=== PATIENT | male | born 1965 | race Caucasian/White ===

== ENCOUNTER 2018-11-18 06:05 | Inpatient (IN) | payer OTHER | END 2018-11-20 10:00 | disposition home or self-care (01) | LOC: PAS IN 06:05 → ORTHO 4S 11:33 | PROC: 0SRD0J9 Replacement of Left Knee Joint with Synthetic Substitute, Cemented, Open Approach (ICD-10-PCS; principal; 2018-11-18 08:38) | DX: M16.11 Unilateral primary osteoarthritis, right hip (principal) ==

== ENCOUNTER 2020-01-04 06:07 | Inpatient (IN) | payer OTHER ==
[2019-12-28 16:00] LABS: BASOPHILS # (AUTO) 0.1 X10'3 (0-0.2); BASOPHILS % (AUTO) 0.8 % (0-1); EOSINOPHILS # (AUTO) 0.1 X10'3 (0-0.9); EOSINOPHILS % (AUTO) 1.5 % (0-6); HEMATOCRIT 42.9 % (42.0-52.0); HEMOGLOBIN 14.3 g/dl (14.0-17.9); LYMPHOCYTES # (AUTO) 2.4 X10'3 (1.1-4.8); LYMPHOCYTES % (AUTO) 35.9 % (21-51); MEAN CORPUSCULAR HEMOGLOBIN 30.4 PG (27.0-31.0); MEAN CORPUSCULAR HGB CONC 33.2 g/dL (33.0-36.5); MEAN CORPUSCULAR VOLUME 91.3 FL (78-98); MEAN PLATELET VOLUME 8.4 FL (7.4-10.4); MONOCYTES # (AUTO) 0.6 X10'3 (0-0.9); MONOCYTES % (AUTO) 8.8 % (2-12); NEUTROPHILS # (AUTO) 3.5 X10'3 (1.8-7.7); PLATELET COUNT 228 X10'3 (140-440); RED BLOOD COUNT 4.69 X10'6 (4.70-6.10); RED CELL DISTRIBUTION WIDTH 13.8 % (11.5-14.5); WHITE BLOOD COUNT 6.6 X10'3 (4.5-11.0)
[2019-12-28 16:15] LABS: ALBUMIN 3.7 G/DL (3.4-5.0); ALBUMIN/GLOBULIN RATIO 1.2 (1.1-1.5); ALKALINE PHOSPHATASE 43 IU/L (46-116); BLOOD UREA NITROGEN 17 MG/DL (7-18); BUN/CREATININE RATIO 13.8 (5.4-32.0); CALCIUM 8.6 MG/DL (8.5-10.1); CHLORIDE 109 MMOL/L (99-107); CREATININE 1.23 MG/DL (0.60-1.10); PRE OP ALT 39 U/L (30-65); PRE OP ANION GAP 8 (8-16); PRE OP AST 29 U/L (10-37); PRE OP BILIRUB, TOTAL 0.4 MG/DL (0.0-1.0); PRE OP GLUCOSE 99 MG/DL (70-104); PRE OP POTASSIUM 4.1 MMOL/L (3.4-5.1); PRE OP SODIUM 145 MMOL/L (135-145); TOTAL PROTEIN 6.9 G/DL (6.4-8.2); eGFR 61 ML/MIN
[~2020-01-04] VITALS: Ht 182.9 cm; Wt 88.5 kg
[2020-01-04] VITALS (18 sets, daily range): BP systolic 89–136; BP diastolic 6–78
[~2020-01-04 06:07] MED LIST: IBUP-1984 PO; VANCOMYCIN 1,500MG inj. 1,500 MG in normal saline 500ml IV soln 500 ML IV ONE; ZOLP5TAB2 PO; acetaminophen 325mg tablet PO ONE; ceFAZolin 2gm in dextrose, iso 50 ML IV ONE; celeCOXIB 100mg capsule PO ONE; famotidine 20mg tablet PO ONE; gabapentin 300mg capsule PO ONE; metoclopramide 5 mg/ml inj IV ONE; oxyCODONE SR 10mg (sust. release) tab -2 tabs (20mg) PO ONE; ringers solution, lacted 1,000 ML IV SCH; tranexamic acid inj. 1,000 MG in normal saline 100 ML IV ONE; zolpidem 5mg tablet PO PRN
[2020-01-04] MEDS ORDERED: acetaminophen 325mg tablet PO PRN (06:10)
[2020-01-04] MEDS ORDERED: magnesium hydroxide 30ml (MOM) UD suspension PO PRN (06:10)
[2020-01-04] MEDS ORDERED: diphenhydrAMINE 25mg capsule PO PRN ×2 (06:10)
[2020-01-04] MEDS ORDERED: bisacodyl 10mg suppository rectal RC PRN (06:10)
[2020-01-04] MEDS ORDERED: HYDROmorphone inj. 0.5 MG/0.5 ML DISP.SYRIN IV PRN ×3 (06:10→10:10)
[2020-01-04] MEDS ORDERED: HYDROmorphone 1 mg/ml syringe IV PRN (06:10)
[2020-01-04] MEDS: gabapentin 300mg capsule PO SCH ×3 (08:00→21:59)
[2020-01-04] MEDS: multivitamins, therapeutics tablet PO SCH (08:00)
[2020-01-04] MEDS: aspirin 325mg tablet PO SCH (08:30)
[2020-01-04] MEDS ORDERED: tetracaine 1% (10mg/ml) pres. free inj. ONE (08:50)
[2020-01-04] MEDS ORDERED: MIDAZolam 1mg/ml 10ml vial ONE (08:52)
[2020-01-04] MEDS ORDERED: fentaNYL/PF 50MCG/1 ML 2ML syringe ONE (08:52)
[2020-01-04] MEDS ORDERED: propofol inj 20 ML IV ONE ×2 (09:35)
[2020-01-04] MEDS ORDERED: ringers solution, lacted 1,000 ML IV SCH (10:09)
[2020-01-04] MEDS ORDERED: labetalol 20mg/4ml (5mg/ml) syringe IV PRN (10:10)
[2020-01-04] MEDS ORDERED: morphine 4 MG/ML inj SYRINge IV PRN (10:10)
[2020-01-04] MEDS ORDERED: hydrALAZINE 20mg/ml inj. IV PRN (10:10)
[2020-01-04] MEDS ORDERED: morphine 2 MG/ML inj. syringe IV PRN (10:10)
[2020-01-04] MEDS ORDERED: ondansetron/PF 4mg/2ml inj IV PRN (10:10)
[2020-01-04] MEDS ORDERED: ROPIVAcaine 0.5% (5mg/ml) 30ml vial ONE (10:34)
[2020-01-04] MEDS ORDERED: cloNIDine hcl/PF 100mcg/ml inj ONE (10:34)
[2020-01-04] MEDS ORDERED: vancomycin 1,000mg inj ONE (10:34)
[2020-01-04] MEDS ORDERED: ketorolac trometh. 30mg/ml inj. ONE (10:34)
[2020-01-04] MEDS ORDERED: epiNEPHrine 1 mg/ml inj ONE (10:34)
--- NOTE | 2020-01-04 11:25 | NUR ---
Received from OR via BED , accompanied by Anesthesiologist DR CORBETT and report given by Anesthesiolgist. PATIENT WAKING UP, DENIES PAIN, V/S WNL, NEUROVASCULAR CHECKS INTACT, 18G PIV LUE , LAUREN DRESSING TO RIGHT HIP CDI W/ COLD POWDER PACK AND IMMOBILIZER BRACE ON , SENSATION T-10. F/C DRAINING CLEAR YELLOW URINE
--- NOTE | 2020-01-04 12:25 | NUR ---
PATIENT A&OX4, DENIES PAIN, V/S WNL, NEUROVASCULAR CHECKS INTACT, 18G PIV LUE , LAUREN DRESSING TO RIGHT HIP CDI W/ COLD POWDER PACK AND IMMOBILIZER BRACE ON , SENSATION T-10. F/C DRAINING CLEAR YELLOW URINE. PATIENT TAKEN TO 4016 WITH ALL BELONGINGS AND HOOKED UP TO MONITORS IN ROOM AND REPORT GIVEN TO ROLL FINISHER WHO HAS TAKEN OVER PATIENT CARE.
[2020-01-04] MEDS: ondansetron/PF 4mg/2ml inj IV PRN (12:58)
[2020-01-04] MEDS: potassium cl 20mEq in 1/2 NS 1,000 ML IV SCH ×3 (13:30→22:13)
[2020-01-04] MEDS: HYDROcodone/acetaminophen 10/325mg tab PO PRN ×3 (14:13→21:59)
[2020-01-04] MEDS ORDERED: TRANEXAMIC ACID IV ONE (15:30)
[2020-01-04] MEDS ORDERED: NORMAL SALINE IV ONE (15:30)
[2020-01-04] MEDS ORDERED: cefazolin/dext.iso 2gm/100ml 100 ML IV SCH (16:00)
[2020-01-04] MEDS: cefazolin/dext.iso 2gm/50ml 50 ML IV SCH (16:00)
--- NOTE | 2020-01-04 18:30 | NUR ---
Patient in room ORTHO 4016. I have received report from Dina URRUTIA and had the opportunity to ask questions and assume patient care.
[2020-01-04] MEDS ORDERED: sennosides 8.6mg tablet PO SCH (21:00)
[2020-01-04] MEDS ORDERED: VANCOMYCIN 1,500MG inj. 1,500 MG in normal saline 500ml IV soln 500 ML IV SCH (22:00)
[2020-01-05] MEDS: cefazolin/dext.iso 2gm/50ml 50 ML IV SCH (00:33)
[2020-01-05 02:00] VITALS: BP 110/55
[2020-01-05] MEDS: HYDROcodone/acetaminophen 10/325mg tab PO PRN ×3 (02:11→10:07)
[2020-01-05] MEDS: potassium cl 20mEq in 1/2 NS 1,000 ML IV SCH (06:07)
[2020-01-05 06:22] LABS: BASOPHILS % (AUTO) 0.3 % (0-1); EOSINOPHILS # (AUTO) 0.1 X10'3 (0-0.9); EOSINOPHILS % (AUTO) 1.1 % (0-6); HEMATOCRIT 38.5 % (42.0-52.0); LYMPHOCYTES # (AUTO) 2.2 X10'3 (1.1-4.8); LYMPHOCYTES % (AUTO) 24.8 % (21-51); MEAN CORPUSCULAR HEMOGLOBIN 30.7 PG (27.0-31.0); MEAN CORPUSCULAR HGB CONC 33.7 g/dL (33.0-36.5); MEAN CORPUSCULAR VOLUME 91.2 FL (78-98); MEAN PLATELET VOLUME 8.2 FL (7.4-10.4); MONOCYTES # (AUTO) 0.7 X10'3 (0-0.9); MONOCYTES % (AUTO) 7.5 % (2-12); NEUTROPHILS # (AUTO) 5.9 X10'3 (1.8-7.7); NEUTROPHILS % (AUTO) 66.3 % (42-75); PLATELET COUNT 192 X10'3 (140-440); RED BLOOD COUNT 4.22 X10'6 (4.70-6.10); RED CELL DISTRIBUTION WIDTH 13.5 % (11.5-14.5); WHITE BLOOD COUNT 8.9 X10'3 (4.5-11.0)
--- NOTE | 2020-01-05 06:29 | NUR ---
Problems reprioritized. Patient report given, questions answered & plan of care reviewed with Herve URRUTIA.
[2020-01-05 06:40] LABS: ANION GAP 5 (8-16); CHLORIDE 109 MMOL/L (99-107); POTASSIUM 4.2 MMOL/L (3.5-5.1); SODIUM 142 MMOL/L (135-145); TOTAL CARBON DIOXIDE 28.1 MMOL/L (24-32)
[2020-01-05] MEDS ORDERED: ASPI-1 PO (06:54)
[2020-01-05] MEDS: ondansetron/PF 4mg/2ml inj IV PRN (08:02)
[2020-01-05 10:00] VITALS: BP 136/76
[2020-01-05] MEDS: gabapentin 300mg capsule PO SCH (10:05)
[2020-01-05] MEDS: aspirin 325mg tablet PO SCH (10:06)
[2020-01-05] MEDS: multivitamins, therapeutics tablet PO SCH (10:06)
--- NOTE | 2020-01-05 11:00 | NUR ---
Received discharge orders from DANI Stover. Pt requested to go home elva. Pt had concerns and David Cano, Director Ortho/Neuro was summoned and met with the patient and his . Pre medicated pt with [facility] x[facility] for ride home to [place]. Pt and stated that they already had ASA 325 mg in their home (Discharge med). Gave pt adhesive gauze dressings and instruction on LAUREN. Saline lock fell out of pts left arm while he was ambulating in the hallway with his . No bleeding. When pt returned to his room bandaid applied. Pt transported via w/c to personal vehicle for ride home.
[2020-01-05] MEDS ORDERED: celeCOXIB 100mg capsule PO SCH (20:00)
== END 2020-01-05 11:00 | disposition home or self-care (01) | DRG 467 ==
LOC: UNDOADMIN 06:07 → PAS IN 06:07 → UNDOADMIN 08:14 → PAS IN 08:14 → EDSTATUS 12:30 → ORTHO 4S 12:37 → PAS IN 12:37
PROVIDERS: ADMIT Orthopaedic Surgery; ATTEND Orthopaedic Surgery
PROC: 0SP90JZ Removal of Synthetic Substitute from Right Hip Joint, Open Approach (ICD-10-PCS; 2020-01-04)
PROC: 0SR906Z Replacement of Right Hip Joint with Oxidized Zirconium on Polyethylene Synthetic Substitute, Open Approach (ICD-10-PCS; principal; 2020-01-04 09:10)
DX: T84.020A Dislocation of internal right hip prosthesis, initial encounter (principal); D62 Acute posthemorrhagic anemia; M21.751 Unequal limb length (acquired), right femur; Z96.641 Presence of right artificial hip joint; M16.7 Other unilateral secondary osteoarthritis of hip; Y83.8 Other surgical procedures as the cause of abnormal reaction of the patient, or of later complication, without mention of misadventure at the time of the procedure; F17.209 Nicotine dependence, unspecified, with unspecified nicotine-induced disorders; E66.8 Other obesity; Z68.26 Body mass index [BMI] 26.0-26.9, adult; Z79.82 Long term (current) use of aspirin; Z79.899 Other long term (current) drug therapy; Y92.89 Other specified places as the place of occurrence of the external cause
CPT/HCPCS: Z7506; Z7508; 36415; 72170; 80051; 80053; 82948; 85025; 86885; 86900; 86901; 87070; 87075; 87081; 97530; A7000; C1758; C1776; G0378; J0171; J0735; J1170; J1885; J2250; J2405; J2704; J2765; J2795; J3010; J3370; J3480; J7040; J7120